=== PATIENT | male | born 1970 | race Caucasian/White ===

== ENCOUNTER 2023-10-28 13:38 | Observation (INO) ==
[2023-10-28] MEDS ORDERED: ONDANSETRON 4 MG/2 ML VIAL IV PRN (13:55)
[2023-10-28 15:02] LABS: C-Reactive Protein < 0.30 mg/dL (0.03-0.80)
[2023-10-28] MEDS: 0.9 % SODIUM CHLORIDE 1,000 ML IV SCH (15:54)
[2023-10-28] MEDS: 0.9 % SODIUM CHLORIDE 10 ML SYRINGE IV SCH (15:59)
[2023-10-28] MEDS: PIPERACILLIN SODIUM/TAZOBACTAM 3.375 GM in DEXTROSE 5% IN WATER 50 ML IV SCH (16:01)
[2023-10-28] MEDS: PIPERACILLIN SODIUM/TAZOBACTAM 3.375 GM in DEXTROSE 5% IN WATER 50 ML IV ONE (16:28)
[2023-10-28] MEDS: PANTOPRAZOLE 40 MG VIAL IV SCH (18:30)
[2023-10-28] MEDS: DOCUSATE SODIUM 100 MG CAPSULE PO SCH (21:00)
[2023-10-28] MEDS: SENNOSIDES 1 TABLET PO SCH (21:00)
[2023-10-28] MEDS: PIPERACILLIN SODIUM/TAZOBACTAM 3.375 GM in DEXTROSE 5% IN WATER 100 ML IV SCH (21:24)
[2023-10-29 06:19] LABS: Basophils # (Auto) 0.05 K/mcL (0.00-0.30); Basophils % (Auto) 0.6 % (0.0-2.0); Eosinophils # (Auto) 0.26 K/mcL (0.00-0.70); Eosinophils % (Auto) 3.3 % (0.0-7.0); Hemoglobin 16.5 g/dL (13.7-17.5); Lymphocytes # (Auto) 2.08 K/mcL (1.50-4.80); Lymphocytes % (Auto) 26.7 % (15.5-49.0); Mean Cell Volume 92.6 fL (80.0-100.0); Mean Corpuscular HGB Conc 33.7 g/dL (31.0-36.0); Monocytes # (Auto) 0.68 K/mcL (0.10-0.90); Monocytes % (Auto) 8.7 % (1.0-12.0); Neutrophils % (Auto) 60.6 % (38.0-78.0); Platelet Count 249 K/mcL (140-440); RBC 5.29 M/mcL (4.63-6.08); Red Cell Distribution Width 11.9 % (11.5-14.5); WBC 7.8 K/mcL (4.5-11.0)
[2023-10-29 06:34] LABS: ALT/SGPT 13 U/L (<40); AST/SGOT 20 U/L (<40); Albumin 3.8 gm/dL (3.2-5.2); Albumin/Globulin Ratio 1.5 (1.0-2.3); Alkaline Phosphatase 69 U/L (39-117); Bilirubin,Direct 0.3 mg/dL (<0.3); Bilirubin,Total 1.1 mg/dL (0.1-1.0); Blood Urea Nitrogen 10 mg/dL (6-20); Carbon Dioxide 25 mmol/L (22-30); Chloride 103 mmol/L (96-108); Globulin 2.5 gm/dL (2.2-3.7); Glomerular Filtration Rate 86; Glucose 98 mg/dL (70-105); Lactate Dehydrogenase 164 U/L (135-225); Phosphorous 3.4 mg/dL (2.5-4.5); Potassium 4.2 mmol/L (3.3-5.1); Sodium 138 mmol/L (133-145); Triglycerides 141 mg/dL (<150); Uric Acid 2.6 mg/dL (2.5-8.0)
[2023-10-29] MEDS ORDERED: SCOPOLAMINE 1 PATCH PATCH TOPICAL PRN (09:30)
[2023-10-29] MEDS ORDERED: IPRATROPIUM/ALBUTEROL 3 ML AMPUL.NEB NEB PRN ×2 (09:30→12:35)
[2023-10-29] MEDS ORDERED: MAGNESIUM SULFATE 2 GM/50 ML BAG IV ONE (10:55)
[2023-10-29] MEDS ORDERED: ONDANSETRON 4 MG/2 ML VIAL ONE (10:55)
[2023-10-29] MEDS ORDERED: fentaNYL 100 MCG/2 ML VIAL ONE ×2 (10:55→13:00)
[2023-10-29] MEDS ORDERED: PROPOFOL 200 MG/20 ML VIAL IV ONE (10:55)
[2023-10-29] MEDS ORDERED: DEXAMETHASONE 10 MG/ML VIAL ONE (10:55)
[2023-10-29] MEDS ORDERED: LIDOCAINE 2% PF 5 ML VIAL ONE (10:55)
[2023-10-29] MEDS ORDERED: ROCURONIUM 10 MG/ML ML IV ONE ×2 (10:55→12:27)
[2023-10-29] MEDS ORDERED: KETAMINE 50 MG/ML Syringe IV ONE (10:55)
[2023-10-29] MEDS ORDERED: METHOCARBAMOL 1,000 MG/10 ML VIAL IV PRN (12:35)
[2023-10-29] MEDS ORDERED: LACTATED RINGERS 250 ML IV PRN (12:35)
[2023-10-29] MEDS ORDERED: ONDANSETRON 4 MG/2 ML VIAL IV PRN (12:35)
[2023-10-29] MEDS ORDERED: NALOXONE HCL 0.4 MG/ML VIAL IV PRN (12:35)
[2023-10-29] MEDS ORDERED: HYDROmorphone 0.5 MG/0.5 ML SYRINGE IV PRN (12:35)
[2023-10-29] MEDS ORDERED: DROPERIDOL 5 MG/2 ML VIAL IV PRN (12:35)
[2023-10-29] MEDS ORDERED: MEPERIDINE 25 MG/ML VIAL IV PRN (12:35)
[2023-10-29] MEDS ORDERED: KETOROLAC 30 MG/ML VIAL IV PRN (12:35)
[2023-10-29] MEDS ORDERED: fentaNYL 100 MCG/2 ML VIAL IV PRN (12:35)
[2023-10-29] MEDS ORDERED: diphenhydrAMINE 50 MG/ML VIAL IV PRN (12:35)
[2023-10-29] MEDS ORDERED: SUGAMMADEX SODIUM 200 MG/2 ML VIAL IV ONE (12:54)
[2023-10-29] MEDS: ACETAMINOPHEN 1,000 MG/100 ML BAG IV ONE (13:21)
[2023-10-29] MEDS: HYDROmorphone 1 MG/ML SYRINGE IV PRN (14:25)
[2023-10-29] MEDS ORDERED: PANTOPRAZOLE 40 MG VIAL IV SCH (17:00)
[2023-10-29] MEDS: LACTATED RINGERS 1,000 ML IV SCH (18:54)
[2023-10-30] MEDS: FLUoxetine HCL 20 MG CAPSULE PO SCH (08:57)
== END 2023-10-30 15:39 | disposition home or self-care (01) ==
LOC: MEDSUR
PROVIDERS: ADMIT Family Medicine Adult Medicine; ATTEND Family Medicine Adult Medicine